=== PATIENT | male | born 1985 | race Two or more races ===

== ENCOUNTER 2021-09-10 23:52 | Inpatient (IN) | payer MEDICAID ==
[~2021-09-10] VITALS: Ht 165.1 cm; Wt 73.9 kg
[2021-09-11 01:24] LABS: BASOPHILS % (AUTO) 0.3 % (0.0-2.0); EOSINOPHILS % (AUTO) 2.8 % (1.0-6.0); HEMATOCRIT 34.5 % (41-53); HEMOGLOBIN 12.1 g/dL (13.5-17.5); LYMPHOCYTES # (AUTO) 1.4 K/uL (1.0-4.8); MEAN CORPUSCULAR HEMOGLOBIN 35.2 pg (26.0-34.0); MEAN CORPUSCULAR VOLUME 100 fL (80-100); MONOCYTES # (AUTO) 1.4 K/uL (0.1-1.0); MONOCYTES % (AUTO) 17.7 % (2.0-9.0); NEUTROPHILS # (AUTO) 4.7 K/uL (1.8-7.7); NEUTROPHILS % (AUTO) 61.2 % (40.0-70.0); RED BLOOD CELL COUNT(AUTO) 3.44 MIL/uL (4.50-5.90); RED CELL DISTRIBUTION WIDTH 12.6 % (11.5-14.5)
[2021-09-11] MEDS ORDERED: SODIUM CHLORIDE 0.9% 1,000 ML IV ONE (01:30)
[2021-09-11 01:41] LABS: PLATELET COUNT (AUTO) 91 K/uL (150-450); PLATELET MORPHOLOGY COMMENT LARGE PLTS PRESENT
[2021-09-11 01:42] LABS: ANION GAP 5 mmol/L (8-16); CALCIUM, TOTAL 8.8 mg/dL (8.8-10.5); CARBON DIOXIDE 27 mmol/L (22-29); CHLORIDE 103 mmol/L (98-107); CREATININE 1.09 mg/dL (0.60-1.30); GLUCOSE,RANDOM 118 mg/dL (70-110); POTASSIUM 3.3 mmol/L (3.5-5.1); SODIUM SERUM 135 mmol/L (136-145); UREA NITROGEN, BLOOD 4 mg/dL (7-18)
[2021-09-11 01:43] LABS: GLOMERULAR FILTR. RATE CALC > 60 mL/min (>60)
[2021-09-11 01:48] LABS: ALANINE AMINOTRANSFERASE 17 U/L (12-78); ALBUMIN 2.9 g/dL (3.4-5.0); ALKALINE PHOSPHATASE 96 U/L (46-116); ASPARTATE AMINOTRANSFERASE 19 U/L (15-37); BILIRUBIN,TOTAL 0.1 mg/dL (0.1-1.0); TOTAL PROTEIN, SERUM 6.5 g/dL (6.4-8.2)
[2021-09-11 01:51] LABS: LITHIUM 1.87 mmol/L (0.60-1.20)
[2021-09-11 03:36] LABS: AMPHET/METH SCREEN,URINE NEGATIVE (NEGATIVE); BARBITURATE SCREEN, URINE NEGATIVE (NEGATIVE); BENZODIAZEPINES SCREEN,URINE NEGATIVE (NEGATIVE); CANNABINOID SCREEN,URINE NEGATIVE (NEGATIVE); COCAINE SCREEN,URINE NEGATIVE (NEGATIVE); METHADONE SCREEN, URINE NEGATIVE (NEGATIVE); OPIATE SCREEN,URINE NEGATIVE (NEGATIVE)
[2021-09-11 03:38] LABS: PHENCYCLIDINE SCREEN,URINE NEGATIVE (NEGATIVE)
[2021-09-11 05:12] LABS: COVID AG,FIA SOURCE NASAL SWAB
[2021-09-11] MEDS ORDERED: POTASSIUM CHLORIDE 20 MEQ ER TABLET PO ONE ×2 (05:30→12:45)
[2021-09-11 07:43] VITALS: BP 124/69
[2021-09-11 11:23] VITALS: BP 95/61
[2021-09-11 13:15] LABS: ANION GAP 5 mmol/L (8-16); CALCIUM, TOTAL 9.4 mg/dL (8.8-10.5); CARBON DIOXIDE 30 mmol/L (22-29); CHLORIDE 112 mmol/L (98-107); CREATININE 0.96 mg/dL (0.60-1.30); GLOMERULAR FILTR. RATE CALC > 60 mL/min (>60); GLUCOSE,RANDOM 107 mg/dL (70-110); POTASSIUM 4.7 mmol/L (3.5-5.1); SODIUM SERUM 147 mmol/L (136-145); UREA NITROGEN, BLOOD 3 mg/dL (7-18)
[2021-09-11 13:22] LABS: LITHIUM 1.22 mmol/L (0.60-1.20)
[2021-09-11 15:21] VITALS: BP 96/72
[2021-09-11 20:08] VITALS: BP 118/65
[2021-09-11 23:54] VITALS: BP 121/69
[2021-09-12 04:39] VITALS: BP 95/59
[2021-09-12] MEDS ORDERED: IPRATROPIUM BROMIDE 0.5 MG/2.5 ML NEB SOLUTION NEB PRN (05:15)
[2021-09-12] MEDS ORDERED: ALBUTEROL SULFATE 2.5 MG/0.5 ML NEB SOLUTION NEB PRN (05:15)
[2021-09-12] MEDS ORDERED: ZOLPIDEM TARTRATE 5 MG TABLET PO PRN (05:15)
[2021-09-12] MEDS ORDERED: ACETAMINOPHEN 325 MG TABLET PO PRN (05:15)
[2021-09-12] MEDS ORDERED: BISACODYL 10 MG RECTAL RECTAL SUPPOSITORY PR PRN (05:15)
[2021-09-12] MEDS ORDERED: HYDROCODONE/ACETAMINOPHEN 5-325 MG TABLET PO PRN (05:15)
[2021-09-12] MEDS ORDERED: MAGNESIUM HYDROXIDE SUSPENSION 30 ML UDCUP PO PRN (05:15)
[2021-09-12] MEDS ORDERED: MORPHINE SULFATE 2 MG/ML SYRINGE IVP PRN (05:15)
[2021-09-12] MEDS ORDERED: ONDANSETRON HCL 4 MG/2 ML VIAL IVP PRN (05:15)
[2021-09-12] MEDS: SODIUM CHLORIDE 0.45% 1,000 ML IV SCH ×2 (05:41→18:50)
[2021-09-12 06:12] LABS: ANION GAP 4 mmol/L (8-16); CALCIUM, TOTAL 9.5 mg/dL (8.8-10.5); CARBON DIOXIDE 28 mmol/L (22-29); CHLORIDE 109 mmol/L (98-107); CREATININE 0.93 mg/dL (0.60-1.30); GLUCOSE,RANDOM 95 mg/dL (70-110); POTASSIUM 4.1 mmol/L (3.5-5.1); SODIUM SERUM 141 mmol/L (136-145); UREA NITROGEN, BLOOD 5 mg/dL (7-18)
[2021-09-12 06:23] LABS: GLOMERULAR FILTR. RATE CALC > 60 mL/min (>60)
[2021-09-12 06:38] LABS: BASOPHILS % (AUTO) 0.4 % (0.0-2.0); EOSINOPHILS % (AUTO) 2.7 % (1.0-6.0); HEMATOCRIT 35.7 % (41-53); HEMOGLOBIN 12.1 g/dL (13.5-17.5); LYMPHOCYTES # (AUTO) 1.8 K/uL (1.0-4.8); LYMPHOCYTES % (AUTO) 25.6 % (22.0-44.0); MEAN CORPUSCULAR HEMOGLOBIN 34.6 pg (26.0-34.0); MEAN CORPUSCULAR HGB CONC 33.8 G/dL (31.0-37.0); MEAN CORPUSCULAR VOLUME 102 fL (80-100); MONOCYTES # (AUTO) 1.3 K/uL (0.1-1.0); NEUTROPHILS # (AUTO) 3.8 K/uL (1.8-7.7); NEUTROPHILS % (AUTO) 53.3 % (40.0-70.0); PLATELET COUNT (AUTO) 80 K/uL (150-450); RED CELL DISTRIBUTION WIDTH 12.8 % (11.5-14.5)
[2021-09-12 06:56] VITALS: BP_SYST 114; BP_SYST 88; BP_DIAS 54; BP_DIAS 66
[2021-09-12] MEDS: HEPARIN SODIUM,PORCINE 5,000 UNITS/ML VIAL SQ SCH ×3 (08:00→23:14)
[2021-09-12] MEDS: DOCUSATE SODIUM 100 MG CAPSULE PO SCH ×2 (08:42→21:58)
[2021-09-12] MEDS: PANTOPRAZOLE SODIUM 40 MG/VIAL IVP SCH (08:43)
[2021-09-12 10:52] VITALS: BP 103/60
[2021-09-12] MEDS ORDERED: BENZ1TAB96 PO (11:02)
[2021-09-12] MEDS ORDERED: LEVO75 PO (11:02)
[2021-09-12] MEDS ORDERED: DIVA-111 PO (11:02)
[2021-09-12] MEDS ORDERED: PALI819S IM (11:02)
[2021-09-12] MEDS ORDERED: POLY17PO47 PO (11:02)
[2021-09-12] MEDS ORDERED: LITH300C3 PO (11:02)
[2021-09-12] MEDS ORDERED: CALC60CR6 TP (11:02)
[2021-09-12] MEDS ORDERED: HALO2 PO (11:02)
[2021-09-12] MEDS ORDERED: DOCU-350 PO (11:02)
[2021-09-12] MEDS ORDERED: LITH600C5 PO (11:02)
[2021-09-12] MEDS ORDERED: BETA50CR5 TP (11:02)
[2021-09-12 14:58] VITALS: BP 103/60
[2021-09-12] MEDS: NICOTINE 21 MG/24 HOUR PATCH TD SCH (15:46)
[2021-09-12 20:03] VITALS: BP 100/66
[2021-09-13 00:34] VITALS: BP 95/68
[2021-09-13 05:19] VITALS: BP 92/54
[2021-09-13 07:35] VITALS: BP 95/60
[2021-09-13] MEDS: HEPARIN SODIUM,PORCINE 5,000 UNITS/ML VIAL SQ SCH (07:57)
[2021-09-13] MEDS: DOCUSATE SODIUM 100 MG CAPSULE PO SCH (07:57)
[2021-09-13] MEDS: PANTOPRAZOLE SODIUM 40 MG/VIAL IVP SCH (07:57)
[2021-09-13] MEDS: NICOTINE 21 MG/24 HOUR PATCH TD SCH (07:58)
[2021-09-13] MEDS: SODIUM CHLORIDE 0.45% 1,000 ML IV SCH (10:16)
[2021-09-13] MEDS ORDERED: DIVALPROEX SODIUM 250 MG DR TABLET PO SCH (10:30)
[2021-09-13] MEDS ORDERED: BENZTROPINE MESYLATE 1 MG TABLET PO SCH (10:30)
[2021-09-13] MEDS ORDERED: HALOPERIDOL 2 MG TABLET PO SCH (10:30)
[2021-09-13 11:13] VITALS: BP 109/67
== END 2021-09-13 14:50 | disposition home or self-care (01) | DRG 816 ==
LOC: EMS 23:54 → 5S 09-11 05:18
PROVIDERS: ADMIT Hospitalist; ATTEND Hospitalist
DX: T56.891A Toxic effect of other metals, accidental (unintentional), initial encounter (principal); E43 Unspecified severe protein-calorie malnutrition; R42 Dizziness and giddiness; F25.9 Schizoaffective disorder, unspecified; F17.210 Nicotine dependence, cigarettes, uncomplicated; D64.9 Anemia, unspecified; Y92.89 Other specified places as the place of occurrence of the external cause; Z71.6 Tobacco abuse counseling; Z68.27 Body mass index [BMI] 27.0-27.9, adult
CPT/HCPCS: 80048; 80053; 80178; 85025; 93005; 99285; C9113; G0480

== ENCOUNTER 2022-10-11 05:27 | Emergency (ER) | payer MEDICAID, OTHER ==
[~2022-10-11] VITALS: Ht 177.8 cm; Wt 77.3 kg
[~2022-10-11 05:27] MED LIST: BENZ1TAB84 PO; DIVA-111 PO; DOCU-352 PO; HALO2 PO; LEVO75 PO; PALI819S IM
[2022-10-11 05:32] VITALS: TEMP 98.4
[2022-10-11] MEDS ORDERED: LIDOCAINE 5% TRANSDERMAL PATCH TD ONE (07:00)
[2022-10-11] MEDS ORDERED: HYDROCODONE/ACETAMINOPHEN 5-325 MG TABLET PO ONE (07:00)
[2022-10-11] MEDS ORDERED: KETOROLAC TROMETHAMINE 30 MG/ML VIAL IM ONE (07:00)
[2022-10-11 07:20] VITALS: BP 116/74; PULSE 86; RESP 16
[2022-10-11] MEDS ORDERED: LIDO700A15 TP (07:53)
== END 2022-10-11 08:57 | disposition home or self-care (01) ==
LOC: EMS 05:28
DX: M25.511 Pain in right shoulder (principal); F17.210 Nicotine dependence, cigarettes, uncomplicated; Z98.890 Other specified postprocedural states
CPT/HCPCS: 99283; 96372; J1885